=== PATIENT | born 1950 | race Caucasian/White ===

== ENCOUNTER 2023-12-15 08:36 | Day surgery (SDC) | payer MEDICARE, SELFPAY ==
--- NOTE | 2023-12-15 | PATH_ITS ---
[facility] Accession Number: [id number] No. of containers..02 Tissue . 01 Material submitted: . PART A: rectum - RECTAL POLYP PART B: colon - TRANSVERSE POLYP . 01 Diagnosis: Part A: RECTAL POLYP: Tubular adenoma. . Part B: TRANSVERSE POLYP: Tubular adenoma. STO 12/17/20231528 Local . 01 Electronically signed: . Ventura Turner MD, Pathologist NPI- [id number] . 01 Gross description: . Part A: RECTAL POLYP: Received in formalin is 1 fragment(s) of cisneros, soft tissue measuring 0.4 x 0.3 x 0.2 cm submitted entirely in 1 cassette(s) . Part B: TRANSVERSE POLYP: Received in formalin is 1 fragment(s) of cisneros, soft tissue measuring 0.5 x 0.3 x 0.3 cm submitted entirely in 1 cassette(s) /RUBEN 12/17/2023 1529 Local . 01 Pathologist provided ICD-10: D12.3, D12.8 . 01 CPT . 463063, 145692 Specimen Comment: A courtesy copy of this report has been sent to [phone] Performed at: [address] [facility] [address], [place], [place] [id number] MD Ventura Turner MD Phone: [phone]
[2023-12-15 09:09] VITALS: BP 138/80; PULSE 72; RESP 16; TEMP 36.2; O2SAT 95
[2023-12-15] MEDS: LACTATED RINGERS 1,000 ML 42 ML IV (09:12)
--- NOTE | 2023-12-15 09:31 | PM.HP.1 ---
History of Present Illness History of Present Illness Date Patient Seen: 12/15/23 Time Patient Seen: 09:31 Chief complaint: Screening Colonoscopy Narrative: 73-year-old man here for screening colonoscopy. Sister has a history of colon cancer. No abdominal concerns today. Last colonoscopy 3 years ago notable for polyps. [facility] Social History Smoking Status: Never smoker alcohol intake: current Meds Home Medications and Allergies Home Medications Medication Instructions Recorded Confirmed Type rosuvastatin 5 mg tablet 5 mg PO QPM cholesterol 12/15/23 12/15/23 History Allergies Allergy/AdvReac Type Severity Reaction Status Date / Time No Known Drug Allergies Allergy Verified 12/15/23 09:12 Exam Vital Signs (past 8 hours): - 12/15/23 09:09 Temperature 97.1 F Pulse Rate 72 Respiratory Rate 16 Blood Pressure 138/80 Pulse Oximetry 95 Oxygen Delivery Method Room Air Oxygen Delivery Method Room Air Narrative Exam Narrative: General adult man alert oriented no acute distress Chest nonlabored respiration Extremities warm well perfused Assessment & Plan Assessment and plan (1) Personal history of colonic polyps: Status: Acute Assessment & Plan narrative: The patient requires colorectal screening and colonoscopy is recommended. Technical details were discussed. Risks, benefits, alternatives explained. Risks including but not limited to myocardial infarction, aspiration, bleeding, pain, missed lesion, incomplete examination, need for further radiographic studies, intestinal injury, and need for major abdominal surgery were discussed. All questions were answered to their satisfaction, and they are in agreement with this plan. Time-Based Coding :: [TOTAL MINUTES] spent with patient and on the chart (including review of chart, obtaining history, exam, reviewing outside data, placing orders, documenting exam and treatment plan, and counseling patient) on [DATE].
[2023-12-15 09:58] VITALS: BP 96/57; PULSE 64; RESP 15; TEMP 37.2; O2SAT 95
[2023-12-15 10:02] VITALS: BP 96/56; PULSE 58; RESP 13; TEMP 36.4; O2SAT 95
--- NOTE | 2023-12-15 10:03 | P.OP.COLON_ITS ---
Operative Date/Time/Diagnoses Date of procedure: 12/15/23 Time of procedure: 10:03 Pre-op diagnosis: Family history of colon cancer, history of polyps Procedure & Clinicians Study performed: Colonoscopy and polypectomy Same procedure as scheduled: Yes Indications: Family history of colon cancer, personal history of colonic polyps Surgeon: Cirilo Maurice Procedure Notes Procedure in detail: The history and physical was performed/updated and the patient is ASA class is 2. The procedure was discussed in detail with the patient. Potential risks complications including infection, bleeding, missed diagnosis, perforation, need for surgery, and were explained. Their questions were answered and informed consent was obtained. Patient was brought to the procedure room and placed standard monitoring equipment. The patient's vital signs were monitored continuously throughout the entire procedure. Prior to starting time-out was performed. The patient was placed in the left lateral recumbent position. Procedural sedation was administered by anesthesia. Examination began with a thorough inspection of the perianal area there was no evidence of fissures, fistulae, external hemorrhoids or cutaneous malignancy. The colonoscopy scope was then placed into the anal canal and was advanced to the cecum, which was identified by the ileocecal valve, the appendiceal orifice and the confluence of the taenia. The scope was then slowly withdrawn examining colon thoroughly in all directions, irrigating it of any residual stool. The scope was retroflexed within the rectum The patient tolerated the procedure well. They will be discharged once criteria are met. The prep was of good/excellent quality. The withdrawl time was 7 minutes. FINDINGS * Rectal polyp 3 mm removed with biopsy forceps * Transverse polyp 3 mm removed with biopsy forceps * Diverticulosis of distal colon Specimen(s): other (Transverse and rectal polyp) Impression: Colonic polyps x2 Post-procedure Recommendations: Colonoscopy in 5 years Disposition: same day surgery
[2023-12-15 10:09] VITALS: BP 103/69; PULSE 75; RESP 18; TEMP 37.1; O2SAT 98
[2023-12-15 10:18] VITALS: BP 108/75; PULSE 71; RESP 15; TEMP 37.1; O2SAT 98
== END 2023-12-15 10:30 | disposition home or self-care (01) ==
PROVIDERS: PCP Family Medicine; Referring Provider Surgery; Visit Provider Surgery
PROC: 0DJD8ZZ Inspection of Lower Intestinal Tract, Via Natural or Artificial Opening Endoscopic (ICD-10-PCS; CPT 45378; principal; 2023-12-15 10:15)
DX: Z12.11 Encounter for screening for malignant neoplasm of colon (principal); Z86.0100 Personal history of colon polyps, unspecified; Z80.0 Family history of malignant neoplasm of digestive organs; K57.30 Diverticulosis of large intestine without perforation or abscess without bleeding; D12.8 Benign neoplasm of rectum; D12.3 Benign neoplasm of transverse colon
CPT/HCPCS: 45380; J2704